=== PATIENT | female | born 1970 | race Caucasian/White ===

== ENCOUNTER → 2016-04-16 | Outpatient (CLI) | payer MEDICAID ==
--- NOTE | 2016-04-16 11:38 | US ---
Bilateral Duplex Carotid Sonography Clinical Indications: 46-year-old female with syncope and diplopia, and a family history of a stroke. Rule out hemodynamically significant stenosis. ICD 10 Diagnostic Code: I67.9. Technique: The cervical portions of the carotid and vertebral arteries were imaged and interrogated by color and pulsed Doppler. Spectral analysis was performed. Cine clips are stored on PACS. Comparison Study: None. Findings: Right Carotid Artery: The common carotid artery, bifurcation, and origin of the internal and externa l carotid artery are well-imaged. Doppler velocity estimates and color Doppler spectra are normal, w ith no sonographic evidence of a flow-limiting stenosis. There is no significant plaque identified. T he peak systolic velocity in the internal carotid artery 72 cm/s, with a peak diastolic velocity 29 c m/s. The ICA to CCA systolic and diastolic ratios are normal. Left Carotid Artery: The common carotid artery, bifurcation, and origin of the internal and external carotid artery are well-imaged. Doppler velocity estimates and color Doppler spectra are normal, wi th no sonographic evidence of a flow-limiting stenosis. There is no plaque observed. The peak systoli c velocity in the internal carotid artery is 92 cm/s, with a peak diastolic velocity of 34 cm/s. The ICA to CCA systolic and diastolic ratios are normal. Vertebral Arteries: Antegrade flow is shown by pulsed Doppler of each vertebral artery. The peak sys tolic velocity in the right vertebral artery is 68 cm/s, with a peak diastolic velocity of 58 cm/s. Impression: 1. There is no sonographic evidence of a flow-limiting carotid stenosis. 2. Patent, antegrade vertebral arteries. Measurement of carotid stenosis is based on velocity parameters that correlate the residual internal carotid diameter with [place] Symptomatic Carotid Endarterectomy Trial (NASCET) based stenosis levels.
== END ==
LOC: CIMAGING 10:46
PROVIDERS: ATTEND Psychiatry & Neurology Neurology
DX: R55 Syncope and collapse (principal); H53.2 Diplopia; Z82.3 Family history of stroke
CPT/HCPCS: 93880-PO

== ENCOUNTER → 2016-06-21 | Outpatient (CLI) | payer MEDICAID | LOC: FCPNEURO 20:00 | PROVIDERS: ATTEND Psychiatry & Neurology Sleep Medicine | DX: G47.33 Obstructive sleep apnea (adult) (pediatric) (principal) ==

== ENCOUNTER → 2018-01-14 | Outpatient (CLI) | payer MEDICAID | LOC: CIMAGING 14:40 | PROVIDERS: ATTEND Family Medicine | DX: K80.20 Calculus of gallbladder without cholecystitis without obstruction (principal); R91.1 Solitary pulmonary nodule | CPT/HCPCS: 74176-PO ==

== ENCOUNTER → 2018-09-22 | Outpatient (CLI) | payer MEDICAID | LOC: FIMAGING 10:42 ==